=== PATIENT | male | born 1940 | race Caucasian/White ===

== ENCOUNTER 2023-06-21 09:57 | Outpatient (CLI) | payer MEDICARE, BC, SELFPAY ==
--- NOTE | 2023-06-21 10:15 | CRLHL7_ITS ---
For Patients: As a result of the Century Cures Act, medical imaging exams and procedure reports are released immediately into your electronic medical record. You may view this report before your referring provider. If you have questions, please contact your health care provider. Technique: Double-contrast esophagram performed after the uneventful administration of effervescent crystals and thick barium followed by thin barium. Fluoroscopy time 1 minute 3 seconds. Indication: Dysphagia Comparison: None. Findings: Mild spontaneous reflux noted. Decreased esophageal mobility. Mild mucosal irregularity noted. No obstruction. No hernia. Impression: Mild spontaneous reflux with decreased esophageal motility and mild reflux esophagitis. Dictated by Jaylen Torres MD @ 06/21/2023 11:39:31 AM (Electronically Signed)
== END 2023-06-21 09:58 | disposition home or self-care (01) ==
LOC: RAD 10:02
PROVIDERS: PCP Family Medicine; Visit Provider Family Medicine
DX: R13.10 Dysphagia, unspecified (principal); K21.9 Gastro-esophageal reflux disease without esophagitis
CPT/HCPCS: 74221

== ENCOUNTER 2024-08-04 11:40 | Outpatient (CLI) | payer MEDICARE, BC, SELFPAY | END 2024-08-04 11:41 | disposition home or self-care (01) | LOC: AMB 08-26 03:46 | PROVIDERS: PCP Family Medicine; Visit Provider Emergency Medicine | DX: I21.4 Non-ST elevation (NSTEMI) myocardial infarction (principal) | CPT/HCPCS: A0425; A0427 ==

== ENCOUNTER 2024-08-04 13:23 | Outpatient (CLI) | payer MEDICARE, BC, SELFPAY | END 2024-08-04 13:24 | disposition home or self-care (01) | LOC: NFLDREF 08-08 17:02 | PROVIDERS: PCP Family Medicine; Referring Provider Family Medicine; Visit Provider Nurse Practitioner | DX: R07.9 Chest pain, unspecified (principal); R79.89 Other specified abnormal findings of blood chemistry | CPT/HCPCS: 84484 ==

== ENCOUNTER 2024-08-04 14:53 | Emergency (ER) | payer MEDICARE, BC, SELFPAY ==
[2024-08-04] VITALS (34 sets, daily range): BP systolic 123–145; BP diastolic 68–93; PULSE 66–83; RESP 12–16; TEMP 36.6; O2SAT 94–97; BMI 20.8
--- NOTE | 2024-08-04 15:16 | CRLHL7_ITS ---
For Patients: As a result of the Century Cures Act, medical imaging exams and procedure reports are released immediately into your electronic medical record. You may view this report before your referring provider. If you have questions, please contact your health care provider. Indication: Chest pain. Technique: Chest 1 view. Comparison: Chest 11/24/2011. Findings/Impression: Cardiovascular and mediastinum: Heart size and vasculature are normal in caliber and appearance. Lungs and pleural space: Lungs are clear. No sign of infiltrate or mass. No sign of pleural effusion. No pneumothorax. Bones and soft tissues: No acute findings. Dictated by Jose Lieberman MD @ 08/04/2024 3:47:57 PM (Electronically Signed)
--- NOTE | 2024-08-04 15:22 | ED_ITS ---
HPI - General Adult General Date Seen: 08/04/24 Chief complaint: Weakness Stated complaint: Abnormal labs at [facility] Time Seen by Provider: 08/04/24 14:59 Source: patient Mode of arrival: ambulatory Limitations: no limitations History of Present Illness HPI narrative: Patient is an 83-year-old male who went to urgent care today with a stated complaint of ?body aches, more specifically left arm pain over the past several days. This has been waxing and waning, he says he has been taking some ibuprofen which does seem to help and right now he does not have any pain. In urgent care, he had apparently mentioned chest pain although to me he specifically denies chest pain. None the less, he had an EKG in Urgent Care which showed a bifascicular block and this was old, he had a troponin ordered which subsequently came back at 0.1, and the urgent care provider were called to recommend that he be seen here. He is not symptomatic right now. He does not note any pattern to this discomfort in his arm, cannot tell me that it is clearly exertional in nature. He denies any prior cardiac history though he does have a history of high blood pressure for which he takes lisinopril and hydrochlorothiazide. He has a remote history of tobacco use none for many many years. He does still drink a couple drinks a day, his [id number] who is with him said he previously had a much more significant alcohol history but has cut back in recent years. He says he has 2 small drinks a day generally speaking now. He denies shortness of breath or cough, fevers, lower extremity swelling or pain, abdominal or back pain, vomiting or diarrhea, black or bloody stools. Related Data Home Medications ?Medication ?Instructions ?Recorded ?Confirmed diphenhydramine HCl 25 mg capsule 25 mg PO QHS PRN 05/25/24 08/04/24 (Benadryl) lisinopril 10 1 tab PO QDAY 05/25/24 08/04/24 mg-hydrochlorothiazide 12.5 mg tablet ibuprofen PO 08/04/24 08/04/24 Allergies Allergy/AdvReac Type Severity Reaction Status Date / Time pseudoephedrine Allergy Verified 08/04/24 14:55 [From Elviraafekofi] Review of Systems Status of ROS: Reports: 10 or more systems reviewed and unremarkable except as noted in History and below PFSH PFS Social History Smoking Status: Never smoker How often do you have a drink containing alcohol: 2-3 times a week AUDIT-C Alcohol total score: 3 Non-prescribed substance use: denies use Exam Narrative: Exam Narrative: Vital signs as noted above. In general, an alert, well-appearing patient. Head: Normocephalic, atraumatic. Eyes: Pupils are equal reactive. Extraocular movements are full. Conjunctivae are normal. ENT: Mucous membranes are moist. Neck: Supple without lymphadenopathy. Heart: Regular rate and rhythm. No murmur or rub. Lungs: Clear bilaterally. No increased work of breathing, crackles or wheezes. Abdomen: Soft and nontender. No organomegaly. Extremities: Well perfused. No edema. No calf tenderness. Pulses intact. Neurologic: Patient is alert and oriented to person and place. Speech is fluent. Face is symmetric. Moves all extremities equally. Affect: Normal. Skin: Warm and dry. Well perfused. Const: Vital Signs, click to edit/add: Vital Signs - 24 hr 08/04/24 14:56 08/04/24 15:08 08/04/24 15:15 Temperature 97.9 F Pulse Rate 74 Pulse Rate [Pulse Oximeter] 75 Respiratory Rate 16 Blood Pressure Blood Pressure [Ri ght Upper Arm] 126/80 Pulse Oximetry 96 95 95 Oxygen Delivery Me thod Room Air 08/04/24 15:15 08/04/24 15:16 08/04/24 15:30 Temperature Pulse Rate 72 72 72 Pulse Rate [Pulse Oximeter] Respiratory Rate Blood Pressure 132/75 Blood Pressure [Ri ght Upper Arm] Pulse Oximetry 96 95 95 Oxygen Delivery Me thod Documenting provider has reviewed patient's vital signs: yes Course Course ED Course: On arrival, he had an EKG which by my review shows normal sinus rhythm, vent ricular rate of 80. He does have a bifascicular block, no significant changes compared to previous. No acute ST segment changes. We will repeat the lab troponin here and confirm that it is elevated, this will serve as a serial troponin as well. Given 324 mg of aspirin. Portable chest x-ray by my review shows an unremarkable mediastinum and no significant pulmonary edema. Final radiology read as follows:Findings/Impression: Cardiovascular and mediastinum: Heart size and vasculature are normal in caliber and appearance. Lungs and pleural space: Lungs are clear. No sign of infiltrate or mass. No sign of pleural effusion. No pneumothorax. Bones and soft tissues: No acute findings. Labs have returned showing a white blood cell count of 7.8 and hemoglobin of 16.6, normal platelets. Coags pending. Metabolic panel is unremarkable. LFTs unremarkable. BNP 837. Troponin here is 0.23. Overall presentation is consistent with acute coronary syndrome. Heparin drip and bolus ordered, consulted with Dr. Jeffrey at [facility] who agrees with transfer for angiogram. Patient remains asymptomatic at this time, hemodynamically stable. Denies any recent surgeries or history of intracranial or GI bleeding. Blood alcohol is 0. He denies prior problems with alcohol withdrawal and denies any symptoms of withdrawal at this time. Vital Signs Vital signs: Initial Vital Signs Temperature 97.9 F 08/04/24 14:56 Temperature Source Temporal Artery Scan 08/04/24 14:56 Pulse Rate 75 08/04/24 14:56 Respiratory Rate 16 08/04/24 14:56 Blood Pressure 126/80 08/04/24 14:56 Blood Pressure Mean 95 08/04/24 14:56 Blood Pressure Position Sitting 08/04/24 14:56 Pulse Oximetry 96 08/04/24 14:56 Oxygen Delivery Method Room Air 08/04/24 14:56 Vital Signs Temperature 97.9 F 08/04/24 14:56 Pulse Rate 75 08/04/24 14:56 Respiratory Rate 16 08/04/24 14:56 Blood Pressure 126/80 08/04/24 14:56 Pulse Oximetry 96 08/04/24 14:56 Oxygen Delivery Method Room Air 08/04/24 14:56 Temperature 97.9 F 08/04/24 22:43 Pulse Rate 75 08/04/24 22:43 Respiratory Rate 16 08/04/24 22:43 Blood Pressure 126/80 08/04/24 22:43 Pulse Oximetry 95 08/04/24 22:01 Oxygen Delivery Method Room Air 08/04/24 14:56 Medications Administered Medications: Discontinued Medications Generic Name Dose Route Start Last Admin Trade Name Freq PRN Reason Stop Dose Admin Aspirin 324 mg 08/04/24 15:15 08/04/24 15:32 Aspirin 81 Mg Tab.Chew PO 08/04/24 15:16 324 mg ONCE ONE Administration Heparin Sodium (Porcine) 4,000 unit 08/04/24 16:02 08/04/24 16:47 Heparin 5,000 Unit/0.5 Ml Inj IVP 08/04/24 16:03 4,000 unit ONCE ONE Administration Heparin Sodium/Dextrose 25,000 unit in 500 mls @ 0 mls/hr 08/04/24 16:15 08/04/24 16:48 Heparin IV 800 unit/hr .Q0M HEATHER 16 mls/hr Administration Protocol Per Protocol Medical Decision Making Lab Data Labs: Lab Results 08/04/24 08/04/24 Range/Units 15:16 Unknown WBC 7.83 (4.50-11.00) K/uL RBC 5.21 (4.30-5.90) m/uL Hgb 16.6 (13.5-17.5) gm/dL Hct 49.6 (37.0-53.0) % MCV 95 (80-100) fL MCH 32 (26-34) pg MCHC 34 (32-36) gm/dL RDW Coeff of Ruby 15.0 (11.5-15.5) % Plt Count 189 (140-440) K/uL Neut % (Auto) 71.3 (42.0-72.0) % Lymph % (Auto) 20.6 (20-44) % [place] % (Auto) 6.6 (0.0-11.0) % Eos % (Auto) 0.5 (0.0-7.0) % Baso % (Auto) 0.5 (0.0-3.0) % Neut # (Auto) 5.58 (1.7-7.0) K/uL Lymph # (Auto) 1.61 (0.90-2.90) K/uL [place] # (Auto) 0.50 (0.00-0.90) K/UL Eos # (Auto) 0.04 (0.00-0.50) K/uL Baso # (Auto) 0.04 (0.00-0.30) K/uL Abs Immat Gran (auto) 0.04 (0.00-0.30) K/uL Imm/Tot Granulo (auto) 0.5 % INR 0.97 (0.91-1.10) APTT 26 (23-33) Seconds Sodium 134 L (135-149) mmol/L Potassium 4.2 (3.6-5.1) mmol/L Chloride 103 (96-114) mmol/L Carbon Dioxide 21 (20-32) mmol/L Anion Gap 10 (7-15) mEq/L BUN 16 (7-30) mg/dL Creatinine 1.1 (0.5-1.5) mg/dL Estimated Creat Clear 49.49 Estimated GFR 67 ml/min Glucose 132 H (60-115) mg/dL Calcium 8.6 (8.4-10.6) mg/dL Magnesium 2.3 (1.5-2.6) mg/dL Total Bilirubin 1.4 (0.1-1.5) mg/dL Direct Bilirubin 0.4 (0.0-0.5) mg/dL AST 29 (12-35) U/L ALT 20 (4-50) U/L Alkaline Phosphatase 71 (40-150) U/L Troponin I 0.23 H* (0.01-0.04) ng/mL NT-Pro-B Natriuret Pep 837 pg/mL Total Protein 6.9 (6.0-8.3) g/dL Albumin 4.1 (3.3-5.0) g/dL Ethyl Alcohol < 0.01 L (0.01-0.03) % Discharge Plan Discharge Clinical Impression: Non-ST elevation NE (NSTEMI) Patient Disposition: [facility] Condition: Stable Prescriptions: No Action ibuprofen PO lisinopril-hydrochlorothiazide 10-12.5 mg tablet 1 tab PO QDAY diphenhydramine HCl [Benadryl] 25 mg capsule 25 mg PO QHS PRN Stand Alone Forms: My[facility] Info Instructions
[2024-08-04 15:31] LABS: Basophils Absolute Auto 0.04 K/uL (0.00-0.30); Basophils Percent Auto 0.5 % (0.0-3.0); Eosinophils Absolute Auto 0.04 K/uL (0.00-0.50); Eosinophils Percent Auto 0.5 % (0.0-7.0); Hematocrit 49.6 % (37.0-53.0); Hemoglobin* 16.6 gm/dL (13.5-17.5); Immature Granulocytes Abs Auto 0.04 K/uL (0.00-0.30); Immature Granulocytes Pct Auto 0.5 %; Lymphocytes Absolute Auto 1.61 K/uL (0.90-2.90); Lymphocytes Percent Auto 20.6 % (20-44); Mean Corpuscular HGB Conc 34 gm/dL (32-36); Mean Corpuscular Hemoglobin 32 pg (26-34); Mean Corpuscular Volume 95 fL (80-100); Monocytes Percent Auto 6.6 % (0.0-11.0); Neutrophils Absolute Auto 5.58 K/uL (1.7-7.0); Neutrophils Percent Auto 71.3 % (42.0-72.0); Platelet Count* 189 K/uL (140-440); Red Blood Count 5.21 m/uL (4.30-5.90); White Blood Count* 7.83 K/uL (4.50-11.00)
[2024-08-04] MEDS: ASPIRIN 81 MG TAB.CHEW 324 MG PO (15:32)
[2024-08-04 15:44] LABS: Albumin* 4.1 g/dL (3.3-5.0); Chloride* 103 mmol/L (96-114); Sodium* 134 mmol/L (135-149)
[2024-08-04 15:45] LABS: Potassium* 4.2 mmol/L (3.6-5.1)
[2024-08-04 15:46] LABS: Creatinine* 1.1 mg/dL (0.5-1.5); Est. Creatinine Clearance* 49.49; Estimated Glomerular Filt Rate 67 ml/min
[2024-08-04 15:47] LABS: Alanine Aminotransferase* 20 U/L (4-50); Alkaline Phosphatase* 71 U/L (40-150); Anion Gap 10 mEq/L (7-15); Aspartate Amino Transferase* 29 U/L (12-35); Bilirubin Direct* 0.4 mg/dL (0.0-0.5); Bilirubin Total* 1.4 mg/dL (0.1-1.5); Blood Urea Nitrogen* 16 mg/dL (7-30); Calcium* 8.6 mg/dL (8.4-10.6); Carbon Dioxide* 21 mmol/L (20-32); Glucose* 132 mg/dL (60-115); Magnesium* 2.3 mg/dL (1.5-2.6); Total Protein* 6.9 g/dL (6.0-8.3)
[2024-08-04 15:49] LABS: Ethanol* < 0.01 % (0.01-0.03)
[2024-08-04 15:57] LABS: NT Pro B Type NatriureticPept* 837 pg/mL
[2024-08-04 15:58] LABS: Slide Review Reflex No
[2024-08-04 16:00] LABS: Troponin I* 0.23 ng/mL (0.01-0.04)
[2024-08-04] MEDS: HEPARIN 5,000 UNIT/0.5 ML INJ 4000 UNIT IVP (16:47)
[2024-08-04] MEDS: HEPARIN 25,000 UNIT/500 ML BAG 16 UNIT IV (16:48)
[2024-08-04 17:14] LABS: INR 0.97 (0.91-1.10); Partial Thromboplastin Time* 26 Seconds (23-33); Prothrombin Time 13.4 Seconds
== END 2024-08-04 22:43 | disposition short-term general hospital (02) ==
PROVIDERS: Emergency Provider Emergency Medicine; PCP Family Medicine
DX: I21.4 Non-ST elevation (NSTEMI) myocardial infarction (principal)
CPT/HCPCS: 36415; 71045; 80048; 80076; 82077; 83735; 83880; 84484; 85025; 85610; 85730; 93005; 94761; 96374; 99284; 99285; A9270; J1644

== ENCOUNTER 2024-08-23 13:36 | Outpatient (CLI) | payer MEDICARE, BC, SELFPAY | END 2024-08-23 13:37 | disposition home or self-care (01) | LOC: AMB 08-26 00:52 | PROVIDERS: PCP Family Medicine; Visit Provider Emergency Medicine Emergency Medical Services | DX: R55 Syncope and collapse (principal) | CPT/HCPCS: A0425; A0427; A0434 ==

== ENCOUNTER 2024-08-23 14:13 | Emergency (ER) | payer MEDICARE, BC, SELFPAY ==
[2024-08-23] VITALS (15 sets, daily range): BP systolic 91–142; BP diastolic 51–117; PULSE 33–50; RESP 16; TEMP 35.7; O2SAT 92–99; BMI 21.1
--- NOTE | 2024-08-23 14:16 | CRLHL7_ITS ---
For Patients: As a result of the Century Cures Act, medical imaging exams and procedure reports are released immediately into your electronic medical record. You may view this report before your referring provider. If you have questions, please contact your health care provider. INDICATION: Fall. Neck pain. TECHNIQUE: Axial CT cuts were performed from the skull base to T1. The images were formatted and reviewed in the sagittal, axial and coronal planes. FINDINGS: There is no fracture or dislocation. There is moderate to severe atlantodental degenerative change. At C2-3, there is mild right degenerative facet arthropathy. There is mild narrowing of the right neural foramen. The central canal and left neural foramen are adequately patent. At C3-4, there is mild bilateral degenerative facet arthropathy. There is mild right and moderate left foraminal narrowing. The central canal is adequately patent. At C4-5, there is left Luschka joint spurring causing mild left foraminal narrowing. There is hypertrophic degenerative facet arthropathy on the right causing mild right foraminal narrowing. The central canal is adequately patent. At C5-6, there is a calcified disc bulge/osteophyte are causing severe central canal stenosis. There is bilateral Luschka joint spurring causing moderate right and severe left foraminal stenosis. At C6-7, there is bilateral Luschka joint spurring causing moderate right and severe left foraminal stenosis. Central canal is adequately patent. At C7-T1, there is no central canal foraminal stenosis. IMPRESSION: 1. Negative for fracture or dislocation. 2. Multilevel degenerative changes. 2. At C5-6, there is severe central canal stenosis with moderate right and severe left foraminal stenosis. 3. At C6-7, there is moderate right and severe left foraminal stenosis. Please note that all CT scans at this facility use dose modulation, iterative reconstruction, and/or weight-based dosing when appropriate to reduce radiation dose to as low as reasonably achievable. Dictated by Romulo Guardado MD @ 08/23/2024 3:36:52 PM (Electronically Signed)
--- NOTE | 2024-08-23 14:16 | CRLHL7_ITS ---
For Patients: As a result of the Century Cures Act, medical imaging exams and procedure reports are released immediately into your electronic medical record. You may view this report before your referring provider. If you have questions, please contact your health care provider. Indication: : Fall TECHNIQUE: Single-view chest. FINDINGS: The lungs are clear. The heart, mediastinum and pulmonary vessels are of normal size. There is no evidence of pleural disease. IMPRESSION: Negative chest. Dictated by Anna Naranjo MD @ 08/23/2024 3:01:31 PM (Electronically Signed)
--- NOTE | 2024-08-23 14:16 | CRLHL7_ITS ---
For Patients: As a result of the Century Cures Act, medical imaging exams and procedure reports are released immediately into your electronic medical record. You may view this report before your referring provider. If you have questions, please contact your health care provider. INDICATION: Fall. Possible loss consciousness. TECHNIQUE: Axial noncontrast CT cuts were performed from the skull base to the vertex. COMPARISON: None. FINDINGS: Within the left posterior parietal paramedian location, there is a peripherally hyperdense mass measuring 1.6 x 1.2 cm. This is extra-axial in location and consistent with a benign meningioma. There is no significant mass effect. There is moderate generalized cerebral volume loss. There is no infarct. There is no midline shift or transtentorial herniation. The calvarium is intact. The orbits appear normal. There is a minimal mucosal thickening along the floor the right maxillary sinus. Impression : Small left posterior parietal paramedian meningioma. No traumatic abnormality. Please note that all CT scans at this facility use dose modulation, iterative reconstruction, and/or weight-based dosing when appropriate to reduce radiation dose to as low as reasonably achievable. Dictated by Romulo Guardado MD @ 08/23/2024 3:28:30 PM (Electronically Signed)
--- NOTE | 2024-08-23 14:16 | ED_ITS ---
HPI - Syncope General Time Seen by Provider: 14:16 Date Seen: 08/23/24 Chief Complaint: Syncope/Fainted Stated Complaint: fall Time Seen by Provider: 08/23/24 14:16 Source: patient, EMS and RN notes reviewed Mode of arrival: EMS Limitations: no limitations History of Present Illness HPI narrative: Pavan is a very pleasant 83-year-old male with history of stent placement 2 weeks ago who is brought to the [facility] by EMS for a fall, hypotension and bradycardia. This gentleman was noted to be volunteering at the [employer] when he fell. He notes that he has been having intermittent episodes of lightheadedness since stent placement 2 weeks ago secondary to a non-STEMI but this is the 1st time that he has fallen. He had no loss of consciousness but did sustain an abrasion and bump on his forehead. He denies neck pain, chest pain, shortness of breath. He does not know if he is on blood thinners. EMS notes upon arrival blood pressure 70 systolic and heart rate 40. They placed pacer pads. Heart rate has continued to be in the 30s and occasionally 20s and occasionally in the 40s. Pavan was given 400 mL of normal saline. He denied any other complaints on scene. Patient denies cough cold congestion fever chills dysuria. He has no shortness of breath, chest pain, abdominal pain, nausea. Related Data Home Medications ?Medication ?Instructions ?Recorded ?Confirmed diphenhydramine HCl 25 mg capsule 25 mg PO QHS PRN 05/25/24 08/04/24 (Benadryl) lisinopril 10 1 tab PO QDAY 05/25/24 08/04/24 mg-hydrochlorothiazide 12.5 mg tablet ibuprofen PO 08/04/24 08/04/24 Allergies Allergy/AdvReac Type Severity Reaction Status Date / Time pseudoephedrine Allergy Verified 08/04/24 14:55 [From Toni] Review of Systems Status of ROS: Reports: 10 or more systems reviewed and unremarkable except as noted in History and below Const: Denies: fever, chills or fatigue Eyes: Denies: change in vision or blurry vision ENMT: Denies: throat pain, neck pain or nasal congestion Cardio: Reports: lightheadedness; Denies: chest pain, palpitations, edema, swelling of feet/ankles or shortness of breath with exertion Resp: Denies: shortness of breath or cough GI: Denies: abdominal pain, nausea, vomiting or diarrhea : Denies: painful urination or urinary frequency Musculo: Denies: neck pain Endo: Denies: fatigue PFSH PFS Social History Smoking Status: Never smoker How often do you have a drink containing alcohol: 2-4 times a month AUDIT-C Alcohol total score: 2 Non-prescribed substance use: denies use Exam Narrative: Exam Narrative: Pavan is alert and oriented. Answering questions appropriately. GCS of 15. Head is with a superficial abrasion overlying edema approximately quarter-sized on his left frontal scalp. No step-offs are palpated. Face is symmetrical. Speech is normal. Neck is supple. No midline cervical tenderness. Heart is with a bradycardic rate but a regular rhythm. Lungs are clear bilaterally. Abdomen is soft nontender. No pulsating mass. Lower extremities with symmetrical pedal pulses. Moving extremities without difficulty. No lower extremity edema. Const: Vital Signs, click to edit/add: Vital Signs - 24 hr 08/23/24 14:15 08/23/24 14:16 08/23/24 14:17 Temperature 96.2 F L Pulse Rate 38 L 37 L Pulse Rate [Pulse Oximeter] 38 L Respiratory Rate 16 Blood Pressure 108/54 L Blood Pressure [Le ft Upper Arm] 108/54 L Pulse Oximetry 99 96 97 Oxygen Delivery Me od Room Air 08/23/24 14:35 08/23/24 14:45 08/23/24 14:48 Temperature Pulse Rate 33 L 43 L 36 L Pulse Rate [Pulse Oximeter] Respiratory Rate Blood Pressure 142/117 H Blood Pressure [Le ft Upper Arm] Pulse Oximetry 95 96 97 Oxygen Delivery Me thod 08/23/24 15:00 08/23/24 15:02 08/23/24 15:05 Temperature Pulse Rate 35 L 47 L 34 L Pulse Rate [Pulse Oximeter] Respiratory Rate Blood Pressure 92/52 L 91/51 L Blood Pressure [Le ft Upper Arm] Pulse Oximetry 96 97 98 Oxygen Delivery Nm thod 08/23/24 15:06 08/23/24 15:15 08/23/24 15:17 Temperature Pulse Rate 35 L 38 L 34 L Pulse Rate [Pulse Oximeter] Respiratory Rate Blood Pressure 92/52 L Blood Pressure [Le ft Upper Arm] Pulse Oximetry 98 97 97 Oxygen Delivery Me thod 08/23/24 15:30 08/23/24 15:31 08/23/24 15:32 Temperature Pulse Rate 50 L 36 L 36 L Pulse Rate [Pulse Oximeter] Respiratory Rate Blood Pressure 116/65 100/53 L Blood Pressure [Le ft Upper Arm] Pulse Oximetry 93 92 93 Oxygen Delivery Me thod Documenting provider has reviewed patient's vital signs: yes Course Course ED Course: Differential diagnosis includes but is not limited to cardiac arrhythmia, acute coronary event, myocardial ischemia, iatrogenic causes, closed head injury, intracranial bleed, pneumonia, infection. At this time pacer pads will remain in place. Blood pressure is 108 systolic. Patient is asymptomatic at this jeremy e. 80% of the time this gentleman's heart rate is in the 80s, 10% in the 20s and 10% in the 40s. He has received 500 mL normal saline and I will give him an additional 500 mL. Plan on head and cervical spine CT because of the fall at this time while we are waiting laboratory values. CBC, comprehensive panel, troponin pending at this time. Reevaluation(s) Reevaluation #1: I had the pleasure of speaking to , a email engineer with [facility]. At this time even though blood pressure has been stable heart rate remains around 34. I have been asked to start a dopamine drip at 2.5 mics per kg per minute. I discussed this with Pavan and he is in agreement with this plan. The plan is a placement of a temporary pacemaker. We do have an ambulance available and therefore feel like this is an expedited transfer verses waiting for air. Patient remains pain-free, no evidence of shortness of breath or changes in mentation. Reevaluation #2: Blood pressure now 91 systolic. Planning on proceeding with our current plan. Vital Signs Vital signs: Initial Vital Signs Temperature 96.2 F L 08/23/24 14:15 Temperature Source Temporal Artery Scan 08/23/24 14:15 Pulse Rate 38 L 08/23/24 14:15 Respiratory Rate 16 08/23/24 14:15 Blood Pressure 108/54 L 08/23/24 14:15 Blood Pressure Mean 72 08/23/24 14:15 Blood Pressure Position Supine 08/23/24 14:15 Pulse Oximetry 99 08/23/24 14:15 Oxygen Delivery Method Room Air 08/23/24 14:15 Vital Signs Temperature 96.2 F L 08/23/24 14:15 Pulse Rate 38 L 08/23/24 14:15 Respiratory Rate 16 08/23/24 14:15 Blood Pressure 108/54 L 08/23/24 14:15 Pulse Oximetry 99 08/23/24 14:15 Oxygen Delivery Method Room Air 08/23/24 14:15 Temperature 96.2 F L 08/23/24 14:15 Pulse Rate 36 L 08/23/24 15:32 Respiratory Rate 16 08/23/24 14:15 Blood Pressure 100/53 L 08/23/24 15:32 Pulse Oximetry 93 08/23/24 15:32 Oxygen Delivery Method Room Air 08/23/24 14:15 Medications Administered Medications: Discontinued Medications Generic Name Dose Route Start Last Admin Trade Name Freq PRN Reason Stop Dose Admin Sodium Chloride 500 mls @ 500 mls/hr 08/23/24 14:16 08/23/24 14:57 0.9 % Sodium Chloride 500 Ml IV 08/23/24 15:15 Infused .Q1H ONE Infusion Dopamine HCl/Dextrose 400 mg in 250 mls @ 6.251 mls/hr 08/23/24 15:15 08/23/24 15:19 Dopamine 1600 Mcg/Ml Infusion IVPB 2.5 mcg/kg/min .TITRATE HEATHER 6.25 mls/hr Administration Protocol 2.5 MCG/KG/MIN Sodium Chloride 1,000 mls @ 20 mls/hr 08/23/24 16:45 08/23/24 15:19 0.9 % Sodium Chloride 1000 Ml IV 20 mls/hr .Q24H HEATHER Administration Ketamine HCl 50 mg 08/23/24 16:35 08/23/24 15:50 Ketamine Hcl 100 Mg/Ml Inj IVP 08/23/24 16:36 50 mg ONCE ONE Administration Ketamine HCl 50 mg 08/23/24 18:39 08/23/24 16:00 Ketamine Hcl 100 Mg/Ml Inj IVP 08/23/24 18:40 50 mg ONCE ONE Administration Ondansetron HCl 4 mg 08/23/24 16:35 08/23/24 15:50 Ondansetron 2 Mg/Ml Inj IVP 08/23/24 16:36 4 mg ONCE ONE Administration MDM - Syncope MDM Narrative Medical decision making narrative: 1. Complete heart block-patient has noted lightheadedness over the past 2 weeks since having stents placed. Rate control is metoprolol 25 mg daily. Today is the 1st day that he fell. EKG shows complete heart block in the 30s. He occasionally dips into the 20s and increases up into the 40s. We have not had to pace at this point given stable blood pressures. At the advice of Cardiology and now with decreasing blood pressure will start dopamine. Pacing is still an option at this time if dopamine fails. 2. Fall-no evidence of closed head injury, skull fracture, intracranial bleed. Cervical spine without evidence of fracture. 3. History of coronary artery disease with recent stent [id number] on 08/04/2024. Patient currently on Plavix. Upon transfer Pavan mcfadden note that he had not been taking his Plavix because he did have some blood in his urine. His primary doctor reagan 1 instructed him that he needs to be on this med and they do have a urological consult pending. Pavan already had a special abdominal CT but I would do not see that that is in our system. Lack of Plavix use does raise the concern about a failed stent. 4. 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 Dr. Jeffrey accepting physician. Patient will travel code 3 given new immediate need for agricultural labor camp manager. Note laboratory values have been returned with a normal troponin 0.02, normal magnesium of 2.0 and normal hemoglobin of 14.6. Patient did not respond to dopamine at 2.5 micrograms/kilogram per minute. We increase this to 5 mcg and patient responded well with a heart rate in the 60s and 70s that this was only transient and heart rate actually fell again to below 20. During this time Pavan was asymptomatic and alert and oriented. Heart rate was variable for a time and was 30s as he was departing and again Pavan was asymptomatic. However once they got in the ambulance [facility] he had an episode of e mesis and was brought back to the emergency room. Patient alert and oriented. And was able to clear his airway. No coughing and lung sounds were clear. Heart rate actually improved 59 but vomiting and nausea could certainly be an anginal equivalent and therefore elected to prepare patient for pacing. Patient was given Zofran 4 mg, ketamine 25 mg and pacing was initiated when heart rate fell again into the 30s. Capture was accomplished and pulses were palpated corresponding to the pacer spikes. Patient was still feeling the discomfort and therefore an additional 25 mg of ketamine was given. Patient was protecting his airway. Heart rate and blood pressure improved. Patient departed with ground ambulance ALS transfer to [facility]. I received a call from cash accounting clerk regarding Pavan. Blood pressure 111 systolic and heart rate at 50. He is having moments where he will stiffen up but does not appear to be having full seizure activity. I suspect this is a side effect of the ketamine and have asked that the cash accounting clerk give 0.5 mg of Ativan. Medical Records Attestation: I reviewed the patient's medical records. Lab Data Attestation: I reviewed the patient's lab results. Labs: Lab Results 08/23/24 08/23/24 Range/Units 14:50 15:00 WBC 8.12 (4.50-11.00) K/uL RBC 4.62 (4.30-5.90) m/uL Hgb 14.6 (13.5-17.5) gm/dL Hct 43.8 (37.0-53.0) % MCV 95 (80-100) fL MCH 32 (26-34) pg MCHC 33 (32-36) gm/dL RDW Coeff of Ruby 13.9 (11.5-15.5) % Plt Count 187 (140-440) K/uL Neut % (Auto) 63.3 (42.0-72.0) % Lymph % (Auto) 22.3 (20-44) % Whiteside % (Auto) 9.5 (0.0-11.0) % Eos % (Auto) 3.1 (0.0-7.0) % Baso % (Auto) 0.6 (0.0-3.0) % Neut # (Auto) 5.14 (1.7-7.0) K/uL Lymph # (Auto) 1.81 (0.90-2.90) K/uL Whiteside # (Auto) 0.80 (0.00-0.90) K/UL Eos # (Auto) 0.25 (0.00-0.50) K/uL Baso # (Auto) 0.05 (0.00-0.30) K/uL Abs Immat Gran (auto) 0.10 (0.00-0.30) K/uL Imm/Tot Granulo (auto) 1.2 % Sodium 134 L (135-149) mmol/L Potassium 3.3 L (3.6-5.1) mmol/L Chloride 100 (96-114) mmol/L Carbon Dioxide 23 (20-32) mmol/L Anion Gap 11 (7-15) mEq/L BUN 28 (7-30) mg/dL Creatinine 1.2 (0.5-1.5) mg/dL Estimated Creat Clear 44.76 Estimated GFR 60 ml/min Glucose 126 H (60-115) mg/dL Calcium 8.1 L (8.4-10.6) mg/dL Magnesium 2.0 (1.5-2.6) mg/dL Total Bilirubin 1.0 (0.1-1.5) mg/dL AST 53 H (12-35) U/L ALT 39 (4-50) U/L Alkaline Phosphatase 106 (40-150) U/L Total Protein 6.0 (6.0-8.3) g/dL Albumin 3.3 (3.3-5.0) g/dL SARS-CoV-2 (PCR) Negative SARS-CoV-2 (Negative) Influenza Type A (PCR) Negative PCR FLU A (Negative) Influenza Type B (PCR) Negative PCR FLU B (Negative) RSV (PCR) Negative PCR RSV (Negative) POC Troponin I 0.02 (0.01-0.04) ng/ml Imaging Data CT scan - head: Attestation: I have reviewed the pertinent imaging results. My impression: I see no evidence of intracranial bleed or skull fracture Radiologist's impression: Within the left posterior parietal paramedian location, there is a peripherally hyperdense mass measuring 1.6 x 1.2 cm. This is extra-axial in location and consistent with a benign meningioma. There is no significant mass effect. There is moderate generalized cerebral volume loss. There is no infarct. There is no midline shift or transtentorial herniation. The calvarium is intact. The orbits appear normal. There is a minimal mucosal thickening along the floor the right maxillary sinus. Impression : Small left posterior parietal paramedian meningioma. No traumatic abnormality. Cervical spine CT: Attestation: I have reviewed the pertinent imaging results. My impression: No evidence of acute fracture Radiologist's impression: There is no fracture or dislocation. There is moderate to severe atlantodental degenerative change. At C2-3, there is mild right degenerative facet arthropathy. There is mild narrowing of the right neural foramen. The central canal and left neural foramen are adequately patent. At C3-4, there is mild bilateral degenerative facet arthropathy. There is mild right and moderate left foraminal narrowing. The central canal is adequately patent. At C4-5, there is left Luschka joint spurring causing mild left foraminal narrowing. There is hypertrophic degenerative facet arthropathy on the right c ausing mild right foraminal narrowing. The central canal is adequately patent. At C5-6, there is a calcified disc bulge/osteophyte are causing severe central canal stenosis. There is bilateral Luschka joint spurring causing moderate right and severe left foraminal stenosis. At C6-7, there is bilateral Luschka joint spurring causing moderate right and severe left foraminal stenosis. Central canal is adequately patent. At C7-T1, there is no central canal foraminal stenosis. IMPRESSION: 1. Negative for fracture or dislocation. 2. Multilevel degenerative changes. 2. At C5-6, there is severe central canal stenosis with moderate right and severe left foraminal stenosis. 3. At C6-7, there is moderate right and severe left foraminal stenosis. Chest x-ray: Attestation: I have reviewed the pertinent imaging results. My impression: I do not note any evidence of heart failure. Radiologist's impression: FINDINGS: The lungs are clear. The heart, mediastinum and pulmonary vessels are of normal size. There is no evidence of pleural disease. IMPRESSION: Negative chest. ECG Data Attestation: I personally reviewed and interpreted this ECG as follows: Prior ECG tracings: available for review Interpretation: Complete heart block noted at a rate of 44. New but left bundle branch block. Compared to previous this is markedly changed. Critical Care Time Critical Care Time Critical Care Time: Yes Attestation: The patient required my highest level preparedness to intervene emergently and I personally spent this critical care time directly and personally managing the patient. This critical care time included: Obtaining a history; Examining the patient; Pulse oximetry; Ordering and reviewing of studies; Arranging urgent treatment with development of a management plan; Evaluation of patients response to treatment; Frequent reassessment discussions with other providers. This critical care time was performed to assess and manage the high probability of imminent life-threatening deterioration that could result in multiorgan failure. It was exclusive of separate billable procedures and treating other patients and teaching time. Total Critical Care Time in Minutes: 120 Discharge Plan Discharge Clinical Impression: CHB (complete heart block), Fall Patient Disposition: Xfer [facility] Discharge Location: [facility] Condition: Improved Prescriptions: No Action ibuprofen PO lisinopril-hydrochlorothiazide 10-12.5 mg tablet 1 tab PO QDAY diphenhydramine HCl [Benadryl] 25 mg capsule 25 mg PO QHS PRN Stand Alone Forms: [employer] Info Instructions
[2024-08-23] MEDS: 0.9 % SODIUM CHLORIDE 500 ML 500 ML IV (14:25)
[2024-08-23 15:01] LABS: Basophils Absolute Auto 0.05 K/uL (0.00-0.30); Basophils Percent Auto 0.6 % (0.0-3.0); Eosinophils Absolute Auto 0.25 K/uL (0.00-0.50); Eosinophils Percent Auto 3.1 % (0.0-7.0); Hematocrit 43.8 % (37.0-53.0); Hemoglobin* 14.6 gm/dL (13.5-17.5); Immature Granulocytes Pct Auto 1.2 %; Lymphocytes Absolute Auto 1.81 K/uL (0.90-2.90); Lymphocytes Percent Auto 22.3 % (20-44); Mean Corpuscular HGB Conc 33 gm/dL (32-36); Mean Corpuscular Hemoglobin 32 pg (26-34); Mean Corpuscular Volume 95 fL (80-100); Monocytes Percent Auto 9.5 % (0.0-11.0); Neutrophils Absolute Auto 5.14 K/uL (1.7-7.0); Neutrophils Percent Auto 63.3 % (42.0-72.0); Platelet Count* 187 K/uL (140-440); RDW Coefficient of Variation % 13.9 % (11.5-15.5); Red Blood Count 4.62 m/uL (4.30-5.90); White Blood Count* 8.12 K/uL (4.50-11.00)
[2024-08-23 15:02] LABS: Slide Review Reflex No
[2024-08-23 15:07] LABS: Troponin, Point-of-Care* 0.02 ng/ml (0.01-0.04)
[2024-08-23 15:15] LABS: Albumin* 3.3 g/dL (3.3-5.0); Chloride* 100 mmol/L (96-114); Potassium* 3.3 mmol/L (3.6-5.1); Sodium* 134 mmol/L (135-149)
[2024-08-23 15:17] LABS: Creatinine* 1.2 mg/dL (0.5-1.5); Est. Creatinine Clearance* 44.76; Estimated Glomerular Filt Rate 60 ml/min
[2024-08-23 15:18] LABS: Alanine Aminotransferase* 39 U/L (4-50); Alkaline Phosphatase* 106 U/L (40-150); Anion Gap 11 mEq/L (7-15); Aspartate Amino Transferase* 53 U/L (12-35); Blood Urea Nitrogen* 28 mg/dL (7-30); Calcium* 8.1 mg/dL (8.4-10.6); Carbon Dioxide* 23 mmol/L (20-32); Glucose* 126 mg/dL (60-115)
[2024-08-23] MEDS: 0.9 % SODIUM CHLORIDE 1000 ml 1,000 ML 20 ML IV (15:19)
[2024-08-23] MEDS: DOPAMINE 1600 mcg/ml infusion 400 MG/250 ML SOLUTION 6.25 MG IVPB (15:19)
[2024-08-23 15:43] LABS: PCR FLU A Negative PCR FLU A (Negative); PCR FLU B Negative PCR FLU B (Negative); PCR RSV Negative PCR RSV (Negative); SARS PCR* Negative SARS-CoV-2 (Negative)
[2024-08-23] MEDS: ONDANSETRON 2 MG/ML inj 4 MG IVP (15:50)
[2024-08-23] MEDS: KETAMINE HCL 100 MG/ML inj 50 MG IVP ×2 (15:50→16:00)
== END 2024-08-23 16:05 | disposition short-term general hospital (02) ==
PROVIDERS: Emergency Provider Family Medicine; PCP Family Medicine
DX: I44.2 Atrioventricular block, complete (principal); W19.XXXA Unspecified fall, initial encounter
CPT/HCPCS: 36415; 70450; 71045; 72125; 80053; 83735; 84484; 85025; 87631; 93005; 96374; 96375; 99285; 99291; 99292; J1265; J2405; J3490; J7030

== ENCOUNTER 2024-08-23 15:30 | Outpatient (CLI) | payer MEDICARE, BC, SELFPAY | END 2024-08-23 15:31 | disposition home or self-care (01) | LOC: AMB 09-04 11:35 | PROVIDERS: PCP Family Medicine; Visit Provider Emergency Medicine Emergency Medical Services | DX: I44.2 Atrioventricular block, complete (principal) | CPT/HCPCS: A0425; A0434 ==

== ENCOUNTER 2024-09-15 15:32 | Outpatient (RCR) | payer MEDICARE, BC, SELFPAY | END 2025-01-13 23:59 | disposition home or self-care (01) | PROVIDERS: PCP Family Medicine; Visit Provider Family Medicine | DX: R41.89 Other symptoms and signs involving cognitive functions and awareness (principal); Z91.89 Other specified personal risk factors, not elsewhere classified; Z51.89 Encounter for other specified aftercare | CPT/HCPCS: 97166; 97535 ==